=== PATIENT | female | born 1995 | race Caucasian/White ===

== ENCOUNTER 2022-06-02 14:57 | Outpatient (REF) | payer OTHER, SELFPAY ==
[2022-06-02 16:11] LABS: IDNOW Serial# 08D9AD1C; Strep A Nucleic Acid Negative (Negative)
== END 2022-06-02 14:58 | disposition home or self-care (01) ==
LOC: HO.MMNH2L 14:57
PROVIDERS: Visit Provider Family Medicine
DX: Z11.2 Encounter for screening for other bacterial diseases (principal)
CPT/HCPCS: 36415; 87651